=== PATIENT | female | born 1960 | race Asian ===

== ENCOUNTER 2018-07-23 06:35 | Inpatient (IN) | payer OTHER ==
[2018-07-23] MEDS ORDERED: ADENOSINE 0 ML (06:53)
[2018-07-23] MEDS ORDERED: ACETAMINOPHEN 325 MG TAB (06:58)
[2018-07-23 07:13] LABS: ADD MAN DIFF? NO
[2018-07-23] MEDS: SODIUM CHLORIDE 0.9% 1L BAG IV* (07:13)
[2018-07-23 07:15] LABS: WHITE BLOOD COUNT 9.9 10^3/ul (4.8-10.8)
[2018-07-23 07:15] LABS: BASOPHILS % 0.3 % (0.0-2.0); EOSINOPHILS % 0.2 % (0.0-7.0); HEMATOCRIT 42.4 % (37.0-47.0); HEMOGLOBIN 13.3 g/dl (12.0-16.0); LYMPHOCYTES # 1.4 10^3/ul (0.8-2.9); LYMPHOCYTES % 14.6 % (15.0-51.0); MEAN CORPUSCULAR HEMOGLOBIN 28.5 pg (29.0-33.0); MEAN CORPUSCULAR HGB CONC 31.4 g/dl (32.0-37.0); MEAN CORPUSCULAR VOLUME 90.8 fl (82.0-101.0); MONOCYTE # 0.9 10^3/ul (0.3-0.9); MONOCYTES % 9.5 % (0.0-11.0); NEUTROPHIL # 7.4 10^3/ul (1.6-7.5); PLATELET COUNT 235 10^3/UL (140-415); RED BLOOD COUNT 4.67 10^6/ul (4.20-5.40)
[2018-07-23 07:19] LABS: INR 0.98; PARTIAL THROMBOPLASTIN TIME 28.6 Sec (23.0-35.0); PROTIME 13.1 Sec (11.9-14.9)
[2018-07-23 07:20] LABS: ALANINE AMINOTRANSFERASE 15 IU/L (13-69); ALBUMIN 4.3 g/dl (3.3-4.9); ALBUMIN/GLOBULIN RATIO 1.13; ALKALINE PHOSPHATASE 79 IU/L (42-121); ANION GAP 16 (5-13); ASPARTATE AMINO TRANSFERASE 38 IU/L (15-46); BILIRUBIN,INDIRECT 0.2 mg/dl (0-1.1); BILIRUBIN,TOTAL 0.2 mg/dl (0.2-1.3); BLOOD UREA NITROGEN 13 mg/dl (7-20); CALCIUM 9.1 mg/dl (8.4-10.2); CARBON DIOXIDE 24 mmol/L (21-31); CHLORIDE 100 mmol/L (97-110); CREATININE 0.74 mg/dl (0.44-1.00); Estimated GFR > 60 mL/min (>60); GLUCOSE 216 mg/dl (70-220); POTASSIUM 3.6 mmol/L (3.5-5.1); SODIUM 140 mmol/L (135-144); TOTAL PROTEIN 8.1 g/dl (6.1-8.1)
[2018-07-23 07:32] LABS: TROPONIN-I 0.047 ng/ml (0.000-0.120)
[2018-07-23] MEDS: CEFEPIME 1GM/50 ML (PMX) 50 ML IVPB (07:53)
[2018-07-23] MEDS: VANCOMYCIN 1 GM (PMX) 250 ML IVPB (08:56)
[2018-07-23] MEDS ORDERED: ACETAMINOPHEN 325 MG TAB PO (09:30)
[2018-07-23] MEDS ORDERED: ONDANSETRON 4 MG INJ IV ×2 (09:30→11:30)
[2018-07-23] MEDS ORDERED: CEFTRIAXONE 500 MG in SOD CHLORIDE 0.9% 50 ML IVPB (11:30)
[2018-07-23] MEDS ORDERED: DOCUSATE SODIUM 100 MG CAP PO (11:30)
[2018-07-23] MEDS ORDERED: NACL 0.9% 3 ML SYG IV (11:30)
[2018-07-23] MEDS ORDERED: morphine 2 MG INJ IV (11:30)
[2018-07-23 11:39] LABS: LACTIC ACID 0.8 mmol/L (0.5-2.0)
[2018-07-23 11:51] LABS: CREATINE KINASE 62 IU/L (23-200)
[2018-07-23] MEDS: SOD CHLORIDE 0.9% 1,000 ML IV (11:57)
[2018-07-23] MEDS: AZITHROMYCIN 250 MG TAB PO (11:58)
[2018-07-23] MEDS: METOPROLOL 25 MG TAB PO ×2 (11:58→21:30)
[2018-07-23] MEDS ORDERED: LEVALBUTEROL (NEB) 1.25 MG/0.5 ML AMP HHN (12:00)
[2018-07-23 12:04] LABS: CK INDEX 3.6; CK-MB 2.21 ng/ml (0.0-2.4)
[2018-07-23 12:07] LABS: TROPONIN-I 0.256 ng/ml (0.000-0.120)
[2018-07-23] MEDS ORDERED: HEPARIN 25000 UNITS/250 ML 250 ML IV (12:30)
[2018-07-23] MEDS ORDERED: NITROGLYCERIN (SL) 0.4 MG TAB SL (12:30)
[2018-07-23] MEDS: HEPARIN 5,000 UNIT/1 ML VIAL SC ×2 (14:00→22:26)
[2018-07-23] MEDS: CEFTRIAXONE 1 GM/NS 50 ML IVPB (16:01)
[2018-07-23 17:11] LABS: ADD UMIC YES; UR ASCORBIC ACID NEGATIVE (NEGATIVE); UR BACTERIA FEW /HPF (NONE SEEN); UR BILIRUBIN (Dip) NEGATIVE (NEGATIVE); UR BLOOD (Dip) NEGATIVE (NEGATIVE); UR CLARITY CLEAR (CLEAR); UR COLOR YELLOW (YELLOW); UR GLUCOSE (Dip) NEGATIVE (NEGATIVE); UR KETONES (Dip) 2+ mg/dL (NEGATIVE); UR LEUKOCYTE ESTERASE (Dip) 1+ Leu/ul (NEGATIVE); UR MUCUS FEW /HPF (NONE SEEN); UR NITRITE (Dip) NEGATIVE (NEGATIVE); UR RBC 6 /HPF (0-5); UR SPECIFIC GRAVITY (Dip) 1.017 (1.003-1.030); UR TOTAL PROTEIN (Dip) NEGATIVE (NEGATIVE); UR UROBILINOGEN (Dip) NEGATIVE (NEGATIVE); UR WBC 61 /HPF (0-5)
[2018-07-23] MEDS: SOD CHLORIDE 0.9% 100 ML (17:30)
[2018-07-23] MEDS: IOHEXOL 300MG/ML 150 ML BTL (17:32)
[2018-07-23 17:47] LABS: CREATINE KINASE 67 IU/L (23-200)
[2018-07-23 18:01] LABS: CK INDEX 3.2; CK-MB 2.17 ng/ml (0.0-2.4); TROPONIN-I 0.168 ng/ml (0.000-0.120)
[2018-07-23] MEDS: GUAIFENESIN/DM 5ML CUP PO (21:29)
[2018-07-23] MEDS: ACETAMINOPHEN 325 MG TAB PO (23:38)
[2018-07-24] MEDS: SOD CHLORIDE 0.9% 1,000 ML IV ×2 (01:08→12:43)
[2018-07-24 06:45] LABS: ADD MAN DIFF? NO
[2018-07-24 06:49] LABS: WHITE BLOOD COUNT 4.7 10^3/ul (4.8-10.8)
[2018-07-24 06:49] LABS: BASOPHILS % 0.4 % (0.0-2.0); EOSINOPHILS % 0.4 % (0.0-7.0); HEMATOCRIT 31.4 % (37.0-47.0); HEMOGLOBIN 9.8 g/dl (12.0-16.0); LYMPHOCYTES # 0.9 10^3/ul (0.8-2.9); LYMPHOCYTES % 18.8 % (15.0-51.0); MEAN CORPUSCULAR HEMOGLOBIN 28.2 pg (29.0-33.0); MEAN CORPUSCULAR HGB CONC 31.2 g/dl (32.0-37.0); MEAN CORPUSCULAR VOLUME 90.2 fl (82.0-101.0); MEAN PLATELET VOLUME 10.2 fl (7.4-10.4); MONOCYTE # 0.5 10^3/ul (0.3-0.9); MONOCYTES % 11.3 % (0.0-11.0); NEUTROPHIL # 3.2 10^3/ul (1.6-7.5); NEUTROPHILS % 68.7 % (39.0-77.0); PLATELET COUNT 156 10^3/UL (140-415); RED BLOOD COUNT 3.48 10^6/ul (4.20-5.40); RED CELL DISTRIBUTION WIDTH 12.7 % (11.5-14.5)
[2018-07-24] MEDS: HEPARIN 5,000 UNIT/1 ML VIAL SC ×3 (06:51→22:45)
[2018-07-24 07:00] LABS: HEMOGLOBIN A1C 5.6 % (0-5.9)
[2018-07-24 07:06] LABS: ALANINE AMINOTRANSFERASE 46 IU/L (13-69); ALBUMIN/GLOBULIN RATIO 1.07; ALKALINE PHOSPHATASE 86 IU/L (42-121); ANION GAP 8 (5-13); ASPARTATE AMINO TRANSFERASE 44 IU/L (15-46); BLOOD UREA NITROGEN 6 mg/dl (7-20); CALCIUM 8.2 mg/dl (8.4-10.2); CARBON DIOXIDE 26 mmol/L (21-31); CHLORIDE 106 mmol/L (97-110); CHOL/HDL RATIO 3.4 RATIO; CHOLESTEROL 124 mg/dl (100-200); CREATININE 0.48 mg/dl (0.44-1.00); Estimated GFR > 60 mL/min (>60); GLUCOSE 94 mg/dl (70-220); HDL CHOLESTEROL 36 mg/dl (37-92); LDL CHOLESTEROL,CALCULATED 67 mg/dl; MAGNESIUM 1.9 mg/dl (1.7-2.5); PHOSPHORUS 3.5 mg/dl (2.5-4.9); POTASSIUM 3.5 mmol/L (3.5-5.1); SODIUM 140 mmol/L (135-144); TOTAL PROTEIN 5.8 g/dl (6.1-8.1); TRIGLYCERIDES 104 mg/dl (0-149)
[2018-07-24] MEDS ORDERED: CEFTRIAXONE 1 GM/NS 50 ML IVPB (08:00)
[2018-07-24] MEDS: REGADENOSON 0.4 MG/5 ML SYG (10:40)
[2018-07-24] MEDS: ASPIRIN 81 MG TAB PO (12:41)
[2018-07-24] MEDS: AZITHROMYCIN 250 MG TAB PO (12:41)
[2018-07-24] MEDS: METOPROLOL 50 MG TAB PO ×2 (12:43→22:29)
[2018-07-24] MEDS: CEFTRIAXONE 1 GM/NS 50 ML IVPB (13:58)
[2018-07-24 22:45] LABS: SITE Left Upper Forearm; TIME 2100
[2018-07-25] MEDS: SOD CHLORIDE 0.9% 1,000 ML IV ×2 (03:18→04:44)
[2018-07-25 06:48] LABS: ADD MAN DIFF? NO
[2018-07-25 06:53] LABS: WHITE BLOOD COUNT 3.1 10^3/ul (4.8-10.8)
[2018-07-25 06:53] LABS: BASOPHILS % 0.6 % (0.0-2.0); EOSINOPHILS # 0.1 10^3/ul (0.0-0.5); EOSINOPHILS % 2.9 % (0.0-7.0); HEMATOCRIT 31.6 % (37.0-47.0); HEMOGLOBIN 9.9 g/dl (12.0-16.0); LYMPHOCYTES # 0.8 10^3/ul (0.8-2.9); LYMPHOCYTES % 24.3 % (15.0-51.0); MEAN CORPUSCULAR HEMOGLOBIN 28.2 pg (29.0-33.0); MEAN CORPUSCULAR HGB CONC 31.3 g/dl (32.0-37.0); MEAN PLATELET VOLUME 10.1 fl (7.4-10.4); MONOCYTE # 0.4 10^3/ul (0.3-0.9); MONOCYTES % 11.3 % (0.0-11.0); NEUTROPHIL # 1.9 10^3/ul (1.6-7.5); NEUTROPHILS % 60.9 % (39.0-77.0); PLATELET COUNT 172 10^3/UL (140-415); RED BLOOD COUNT 3.51 10^6/ul (4.20-5.40); RED CELL DISTRIBUTION WIDTH 12.7 % (11.5-14.5)
[2018-07-25] MEDS: HEPARIN 5,000 UNIT/1 ML VIAL SC ×3 (07:03→21:21)
[2018-07-25 07:09] LABS: ANION GAP 5 (5-13); BLOOD UREA NITROGEN 6 mg/dl (7-20); CALCIUM 8.1 mg/dl (8.4-10.2); CARBON DIOXIDE 28 mmol/L (21-31); CHLORIDE 109 mmol/L (97-110); CREATININE 0.44 mg/dl (0.44-1.00); Estimated GFR > 60 mL/min (>60); GLUCOSE 100 mg/dl (70-220); POTASSIUM 3.4 mmol/L (3.5-5.1); SODIUM 142 mmol/L (135-144)
[2018-07-25] MEDS: METOPROLOL 50 MG TAB PO ×2 (09:06→21:15)
[2018-07-25] MEDS: ASPIRIN 81 MG TAB PO (09:06)
[2018-07-25] MEDS: AZITHROMYCIN 250 MG TAB PO (09:06)
[2018-07-26] MEDS: ASPIRIN 81 MG TAB PO (08:37)
[2018-07-26] MEDS: AZITHROMYCIN 250 MG TAB PO (08:37)
[2018-07-26] MEDS: METOPROLOL 50 MG TAB PO ×2 (08:37→21:50)
[2018-07-26] MEDS: ENOXAPARIN 40 MG/0.4 ML SYG SC (08:59)
[2018-07-26] MEDS: NIFEdipine (XL) 30 MG TAB PO (13:13)
[2018-07-26 22:10] LABS: FORTY EIGHT HOUR READING 0 mm (0-9)
[2018-07-27] MEDS: ASPIRIN 81 MG TAB PO (09:11)
[2018-07-27] MEDS: AZITHROMYCIN 250 MG TAB PO (09:11)
[2018-07-27] MEDS: METOPROLOL 50 MG TAB PO ×2 (09:12→20:03)
[2018-07-27] MEDS: NIFEdipine (XL) 30 MG TAB PO (09:12)
[2018-07-27] MEDS: ENOXAPARIN 40 MG/0.4 ML SYG SC (09:24)
[2018-07-27] MEDS: TIOTROPIUM 18 MCG CAPSULE INHA DEV INH (18:30)
[2018-07-27 22:08] LABS: SEVENTY TWO HOUR READING 0 mm (0-9)
[2018-07-28 06:09] LABS: ADD MAN DIFF? NO
[2018-07-28 06:11] LABS: WHITE BLOOD COUNT 2.7 10^3/ul (4.8-10.8)
[2018-07-28 06:11] LABS: BASOPHILS % 0.4 % (0.0-2.0); EOSINOPHILS # 0.1 10^3/ul (0.0-0.5); EOSINOPHILS % 2.6 % (0.0-7.0); HEMATOCRIT 33.2 % (37.0-47.0); HEMOGLOBIN 10.3 g/dl (12.0-16.0); LYMPHOCYTES # 0.8 10^3/ul (0.8-2.9); LYMPHOCYTES % 29.8 % (15.0-51.0); MEAN CORPUSCULAR HEMOGLOBIN 28.2 pg (29.0-33.0); MEAN PLATELET VOLUME 9.6 fl (7.4-10.4); MONOCYTE # 0.2 10^3/ul (0.3-0.9); MONOCYTES % 7.9 % (0.0-11.0); NEUTROPHIL # 1.6 10^3/ul (1.6-7.5); NEUTROPHILS % 58.9 % (39.0-77.0); PLATELET COUNT 232 10^3/UL (140-415); RED BLOOD COUNT 3.65 10^6/ul (4.20-5.40); RED CELL DISTRIBUTION WIDTH 12.4 % (11.5-14.5)
[2018-07-28 06:43] LABS: MAGNESIUM 2.3 mg/dl (1.7-2.5)
[2018-07-28 07:25] LABS: ANION GAP 6 (5-13); BLOOD UREA NITROGEN 10 mg/dl (7-20); CALCIUM 8.8 mg/dl (8.4-10.2); CARBON DIOXIDE 31 mmol/L (21-31); CHLORIDE 106 mmol/L (97-110); Estimated GFR > 60 mL/min (>60); GLUCOSE 93 mg/dl (70-220); SODIUM 143 mmol/L (135-144)
[2018-07-28] MEDS: ASPIRIN 81 MG TAB PO (08:44)
[2018-07-28] MEDS: NIFEdipine (XL) 30 MG TAB PO (08:44)
[2018-07-28] MEDS: METOPROLOL 50 MG TAB PO (08:44)
[2018-07-28] MEDS: ENOXAPARIN 40 MG/0.4 ML SYG SC (08:45)
[2018-07-28] MEDS: AZITHROMYCIN 250 MG TAB PO (11:04)
[2018-07-28] MEDS: TIOTROPIUM 18 MCG CAPSULE INHA DEV INH (11:06)
[2018-07-28 21:57] LABS: NIL 0.06 IU/mL; QUANTIFERON(R)-TB GOLD NEGATIVE (NEGATIVE); TB-NIL 0.04 IU/mL; TB2-NIL 0.04 IU/mL
== END 2018-07-28 18:00 | disposition home or self-care (01) | DRG 281 ==
LOC: TEL 07-24 21:30 → 5EC 07-28 00:15 → E/R 06:35 → TEL 09:08
PROC: 3E033RZ Introduction of Antiarrhythmic into Peripheral Vein, Percutaneous Approach (ICD-10-PCS; 2018-07-23)
PROC: 4A12XM4 Monitoring of Cardiac Stress, External Approach (ICD-10-PCS; principal; 2018-07-24)
PROC: 3E033HZ Introduction of Radioactive Substance into Peripheral Vein, Percutaneous Approach (ICD-10-PCS; 2018-07-24)
DX: I47.1 Supraventricular tachycardia (principal); I21.A1 Myocardial infarction type 2; E87.2 Acidosis; N39.0 Urinary tract infection, site not specified; D64.9 Anemia, unspecified; I10 Essential (primary) hypertension; J43.2 Centrilobular emphysema; J47.9 Bronchiectasis, uncomplicated; J06.9 Acute upper respiratory infection, unspecified; R73.9 Hyperglycemia, unspecified
CPT/HCPCS: 36415; 71045; 71270; 78452; 80048; 80053; 80061; 81001; 82550; 82553; 83036; 83605; 83735; 84100; 84443; 84484; 85025; 85610; 85730; 86480; 86580; 87040; 87086; 87400; 93005; 93017; 93306; 96374; 96375; 99291-25